=== PATIENT | female | born 1950 | race Caucasian/White ===

== ENCOUNTER → 2017-11-25 | Outpatient (CLI) | payer OTHER ==
[~2017-11-25] MED LIST: ASPIR-TRIN325 M1 PO; CELEBREX200 MG PO; COSOPT 0.5200 DROP/1 BOTH EYES; FEOSOL325 MG PO; LIPITOR10 MG PO; MURO-128 OPHTH3.5 GM BOTH EYES; SENOKOT S,PE1 TABLET PO; Vicodin,Lortab 5/500 PO
== END | disposition home or self-care (01) ==
DX: M17.12 Unilateral primary osteoarthritis, left knee (principal); R26.2 Difficulty in walking, not elsewhere classified; M25.562 Pain in left knee; M25.662 Stiffness of left knee, not elsewhere classified; Z74.1 Need for assistance with personal care
CPT/HCPCS: 97161 GP; 97165 GO; 97530 GP; 97535 GO; G8978 GP; G8979 GP; G8980 GP; G8987 GO; G8988 GO; G8989 GO

== ENCOUNTER 2018-02-08 21:16 | Inpatient (IN) | payer OTHER ==
[~2018-02-08] VITALS: Ht 157.5 cm; Wt 99.6 kg
[~2018-02-08 21:16] MED LIST changes: +DICLOFENAC SOD100 MG PO; +DICLOFENAC SOD150 ML TP; +LEVOTHYROXINE25 MCG PO; +PREMARIN0.625 MG PO; +TYLENOL EXTRA500 MG PO
[2018-02-09 06:03] VITALS: BP 126/67
[2018-02-09 10:12] LABS: HEMATOCRIT 35.4 % (36.0-46.0); HEMOGLOBIN 11.5 G/DL (11.9-15.5); MCHC 32.5 G/DL (30.0-36.0); MCV 92.4 FL (83-99); PLATELET COUNT 208 K/uL (156-360); RBC DIS.WIDTH-CV 12.5 % (11.8-14.6); RBC DIS.WIDTH-SD 42.4 % (39-53); RED BLOOD COUNT 3.83 M/uL (3.80-5.20); WHITE BLOOD COUNT 6.9 K/uL (4.1-10.2)
[2018-02-09 10:19] VITALS: BP 125/67
[2018-02-09 15:36] VITALS: BP 158/70
[2018-02-09 19:22] VITALS: BP 158/78
[2018-02-09 20:11] VITALS: BP 144/74
[2018-02-09 23:48] VITALS: BP 141/63
[2018-02-10 03:47] VITALS: BP 137/70
[2018-02-10 07:36] VITALS: BP 150/67
[2018-02-10 08:38] LABS: HEMATOCRIT 34.6 % (36.0-46.0); HEMOGLOBIN 11.4 G/DL (11.9-15.5); MCV 92.5 FL (83-99)
[2018-02-10 09:06] LABS: CHLORIDE 98 MEQ/L (99-109); CREATININE 0.6 MG/DL (0.6-1.3); GFR ESTIMATE (CALCULATED) > 59 mL/min/; GLUCOSE 128 mg/dL (70-99); POTASSIUM 3.9 MEQ/L (3.7-5.4); SODIUM 133 MEQ/L (136-147); UREA NITROGEN (BUN) 8 mg/dL (9-23)
[2018-02-10 12:02] VITALS: BP 115/57
[2018-02-10 15:34] VITALS: BP 132/59
[2018-02-10 19:43] VITALS: BP 103/56
[2018-02-10 23:34] VITALS: BP 110/62
[2018-02-11 04:13] VITALS: BP 131/58
[2018-02-11 06:19] LABS: HEMATOCRIT 31.3 % (36.0-46.0); HEMOGLOBIN 10.6 G/DL (11.9-15.5); MCV 90.2 FL (83-99)
[2018-02-11 08:00] VITALS: BP 123/58
[2018-02-11] MEDS ORDERED: ENDOCET 5-3251 EACH PO (08:25)
[2018-02-11] MEDS ORDERED: LOVENOX40 MG/0.4 SC ×2 (08:25→08:55)
[2018-02-11 12:09] VITALS: BP 112/53
== END 2018-02-11 14:35 | DRG 470 ==
LOC: ENRESERV 21:16 → 2SOUTH 02-09 05:22 → 3WEST 02-09 10:01 → 2SOUTH 02-09 15:33 → 3WEST 02-11 14:35
PROVIDERS: Orthopaedic Surgery
PROC: 0SRD0J9 Replacement of Left Knee Joint with Synthetic Substitute, Cemented, Open Approach (ICD-10-PCS; principal; 2018-02-09)
DX: M17.12 Unilateral primary osteoarthritis, left knee (principal); Z68.41 Body mass index [BMI] 40.0-44.9, adult; Z96.651 Presence of right artificial knee joint; E78.5 Hyperlipidemia, unspecified; H40.9 Unspecified glaucoma; E66.9 Obesity, unspecified; G89.29 Other chronic pain
CPT/HCPCS: 73560; 80048; 85014; 85018; 85027; 93971; 97530 GO; C1713; J0690; J1170; J1650; J2250; J2405; J2795; J7050; S0020